=== PATIENT | male | born 1930 | race Caucasian/White ===

== ENCOUNTER 2019-02-21 14:49 | Emergency (ER) | payer OTHER ==
[~2019-02-21] VITALS: Ht 160 cm; Wt 54.4 kg
[2019-02-21 14:53] VITALS: BP_SYST 122
--- NOTE | 2019-02-21 14:58 | NUR ---
Patient to ER bed 02 to gown for evaluation. Side rails up.
[2019-02-21] MEDS ORDERED: NS 500 ML IV ONE (15:00)
[2019-02-21] MEDS ORDERED: PANTOPRAZOLE SODIUM 40 MG/VIAL (PROTONIX) IVP ONE (15:00)
[2019-02-21] MEDS ORDERED: ONDANSETRON HCL 4 MG/2 ML VIAL IVP ONE (15:00)
--- NOTE | 2019-02-21 15:00 | NUR ---
pt arrives from [facility] for uncontrolled vomiting. Pt is AAOx2. Pt is not c/o abd pain at the moment. Cardaic monitor placed.
--- NOTE | 2019-02-21 15:10 | NUR ---
ER at bedside examining patient.
[2019-02-21 15:24] LABS: BASOPHILS % (AUTO) 0.2 % (0.0-2.0); EOSINOPHILS % (AUTO) 0.1 % (0.0-4.0); HEMATOCRIT 34.9 % (36-54); HEMOGLOBIN 11.7 g/dL (14.0-18.0); LYMPHOCYTES # (AUTO) 0.9 K/uL (1.0-5.5); LYMPHOCYTES % (AUTO) 5.8 % (20.5-51.5); MEAN CORPUSCULAR HEMOGLOBIN 31 pg (27-31); MEAN CORPUSCULAR HGB CONC 34 % (32-36); MEAN CORPUSCULAR VOLUME 93 fL (79.0-98.0); MONOCYTES # (AUTO) 0.6 K/uL (0.0-1.0); MONOCYTES % (AUTO) 3.8 % (1.7-9.3); NEUTROPHILS # (AUTO) 13.9 K/uL (1.8-7.7); NEUTROPHILS % (AUTO) 90.1 % (40.0-70.0); PLATELET COUNT (AUTO) 228 K/uL (130-430); RED BLOOD CELL COUNT(AUTO) 3.75 MIL/uL (4.2-6.2); WHITE BLOOD COUNT (AUTO) 15.4 K/uL (4.8-10.8)
--- NOTE | 2019-02-21 15:25 | NUR ---
# 18 gauge angiocath placed to LAC. Use of asceptic technique. Opsite placed over site. Blood return noted. Blood for lab drawn from site. Flushed with 10 cc of normal saline. No evidence of infiltration noted. Patient tolerated well.
[2019-02-21 15:43] LABS: PROTHROMBIN TIME 10.2 SECS (9.5-12.5)
[2019-02-21 15:48] LABS: ANION GAP 6 (5-15); CHLORIDE 100 mmol/L (98-107); CREATININE 1.16 mg/dL (0.55-1.30); GLUCOSE 154 mg/dL (70-99); POTASSIUM 4.1 mmol/L (3.5-5.1); SODIUM SERUM 134 mmol/L (136-145); UREA NITROGEN, BLOOD 47 mg/dL (8-21)
[2019-02-21 15:59] LABS: ALANINE AMINOTRANSFERASE 20 U/L (12-78); ALBUMIN 3.2 g/dL (3.4-4.8); ASPARTATE AMINOTRANSFERASE 20 U/L (10-37); LIPASE 209 U/L (73-393); TOTAL BILIRUBIN 0.3 mg/dL (0.0-1.0)
--- NOTE | 2019-02-21 16:20 | NUR ---
medicatedn the pt w/ Aspirin 81mg per MD order. Will reassess.
[2019-02-21 16:29] LABS: BILIRUBIN,URINE NEGATIVE (NEGATIVE); BLOOD, URINE 2+ (NEGATIVE); CLARITY/URINE HAZY (CLEAR); COLOR,URINE YELLOW (YELLOW); GLUCOSE,URINE NEGATIVE (NEGATIVE); KETONES,URINE NEGATIVE (NEGATIVE); LEUKOCYTE ESTERASE ,URINE NEGATIVE (NEGATIVE); NITRITE, URINE NEGATIVE (NEGATIVE); PROTEIN URINE NEGATIVE (NEGATIVE); UROBILINOGEN,URINE 0.2 (0.2-1.0)
--- NOTE | 2019-02-21 16:30 | NUR ---
UA collected and sent to the lab
[2019-02-21 16:55] LABS: BACTERIA,URINE FEW /HPF (None Seen); FINE GRANULAR CASTS,URINE 0-10 /LPF (None Seen); HYALINE CASTS, URINE 0-10 /LPF (None Seen); MUCUS,URINE 1+ /LPF (None Seen); WBC,URINE 0-3 /HPF (0-3)
[2019-02-21] MEDS ORDERED: ASPIRIN 81 MG TAB.CHEW PO ONE ×2 (17:00→19:00)
--- NOTE | 2019-02-21 19:10 | NUR ---
Medicated the pt w/ an additional does of Aspirin per MD order
--- NOTE | 2019-02-21 19:20 | NUR ---
report given to Db [place]. Pt is in stable condition .
--- NOTE | 2019-02-21 19:22 | NUR ---
Medication reconciliation completed with information provided by pt's medical record. Any prior medication reconciliation on file was reviewed and corrected.
--- NOTE | 2019-02-21 19:25 | NUR ---
Received report from Albino RN, Pt stable, VSS. Alert but confused. Pt to be admitted, waiting on admit orders. Will continue to monitor.
[2019-02-21] MEDS ORDERED: TRAM-350 PO (19:35)
[2019-02-21] MEDS ORDERED: ACET-2165 PO (19:36)
--- NOTE | 2019-02-21 19:54 | NUR ---
Patient will be admitted to care of Dr. Alcala. Admitted to Telemetry unit. Will go to room 135. Belongings list completed. Summary report printed. Report will be given at bedside.
[2019-02-21] MEDS ORDERED: NACL 0.9% 1,000 ML IV SCH (20:00)
[2019-02-21] MEDS ORDERED: cefTRIAXone 1 GM VIAL IM SCH (20:00)
--- NOTE | 2019-02-21 20:14 | NUR ---
Pt stable, awaiting Room number for transport.
--- NOTE | 2019-02-21 21:10 | NUR ---
Kendrick morris in ED - 02/21/19 at 2113 by BRIANNA Bed now ready. Pt to be transferred now on Tele monitor box.
--- NOTE | 2019-02-21 21:42 | NUR ---
Per [facility] insurance, Pt will no longer be admitted to [facility], but will be transferred to a different facility.
--- NOTE | 2019-02-21 22:10 | NUR ---
Spoke with Dr. Alcala, made aware of Pt situation and insurance discrepency. Given ok to cancel orders. Pt to be transferred out to a different contract facility per [facility].
[2019-02-21] MEDS ORDERED: ACETAMINOPHEN 325 MG TABLET PO PRN (22:15)
[2019-02-21] MEDS ORDERED: ONDANSETRON HCL 4 MG/2 ML VIAL IVP PRN (22:15)
[2019-02-21] MEDS ORDERED: TAMSULOSIN HCL 0.4 MG CAP PO SCH (22:30)
[2019-02-21] MEDS ORDERED: cefTRIAXone 1 GM in D5W 50 ML IV SCH (22:30)
--- NOTE | 2019-02-21 23:53 | NUR ---
Pt moved to bed 08
--- NOTE | 2019-02-22 00:35 | NUR ---
Patient to be transferred to [facility] to higher level of care. Receiving facility has accepting physician and available space. ER physician has signed transfer form. Patient or responsible libertarian has agreed to transfer and signed form. Patient belongings inventoried and will be sent with patient. Copy of nursing notes, lab reports, EKG, Physicians Orders and X-rays to be sent with patient. Report called to Misael at receiving facility. Receiving physician is Dr. Ibarra. [facility] service has been called for transfer. ETA is [id number].
[2019-02-22 01:00] VITALS: BP_SYST 130
[2019-02-22] MEDS ORDERED: PANTOPRAZOLE SODIUM 40 MG/VIAL (PROTONIX) IVP SCH (09:00)
== END 2019-02-22 00:35 | disposition short-term general hospital (02) ==
LOC: SED 14:49 → STU 19:50 → UNDOADMIN 19:50 → STU 02-22 00:35
DX: K91.0 Vomiting following gastrointestinal surgery (principal)
CPT/HCPCS: 36415; 71045; 80053; 81000; 83605; 83690; 84484; 85025; 85610; 85730; 87040; 87086; 93005; 96374; 96375; 99285; C9113; J0696; J2405; J7030; J7060